=== PATIENT | female | born 1955 | race Caucasian/White ===

== ENCOUNTER 2022-05-01 14:56 | Outpatient (REF) | payer MEDICAID, SELFPAY ==
--- NOTE | ~2022-05-01 | MM_ITS ---
EXAMINATION: MM SCREENING DIGITAL BREAST TOMOSYNTHESIS, BILATERAL CLINICAL INFORMATION: Screening. Asymptomatic. The lifetime risk of breast cancer based on the Tyrer-Cuzick Model is 4%. COMPARISON: Mammography: 07/08/2017, 11/22/2015, 10/27/2012 TECHNIQUE: Digital breast tomosynthesis is performed in both the craniocaudal and mediolateral oblique views along with computer-aided detection (CAD). Synthesized 2D images are generated from the tomosynthesis. Additional left MLO view is provided. FINDINGS: There are scattered areas of fibroglandular density (ACR BI-RADS breast composition Category b). There is an irregular focal asymmetric density posterior central left breast just under 1 cm representing change from prior exams. Patient will be recalled for additional imaging. The remainder of the breasts show no significant mass or architectural abnormality or abnormal calcifications. There is intramammary node again seen posterior upper outer left breast. The axilla and skin contours are unremarkable. MM/MM tomosynthesis screening BI IMPRESSION: Left: -New irregular focal asymmetric density posterior central breast, just under 1 cm. Right: -No mammographic evidence of malignancy. ASSESSMENT: BI-RADS 0: Incomplete - Need Additional Imaging Evaluation RECOMMENDATION: 1. Additional views of the left breast (spot CC, spot MLO). 2. Left breast ultrasound. 3. Radiology department staff will contact the patient for additional imaging. This patient's information was entered into a reminder system with a target due date for their next mammogram.
== END 2022-05-01 14:57 | disposition home or self-care (01) ==
LOC: HO.MAMMO 14:56
PROVIDERS: Visit Provider Internal Medicine
DX: Z12.31 Encounter for screening mammogram for malignant neoplasm of breast (principal)
CPT/HCPCS: 77063; 77067

== ENCOUNTER 2022-05-15 13:39 | Outpatient (REF) | payer OTHER, MEDICAID, SELFPAY ==
--- NOTE | ~2022-05-15 | MM_ITS ---
EXAMINATION: MM DIAGNOSTIC DIGITAL BREAST TOMOSYNTHESIS, LEFT US BREAST TARGETED, LEFT CLINICAL INFORMATION: Asymmetric density deep central left breast. COMPARISON: Mammography: 05/01/2022 and studies dating back to 10/23/2011. TECHNIQUE: Digital breast tomosynthesis is performed. 2D images are generated from the tomosynthesis. The following views are obtained: Rolled craniocaudal views as well as spot compression craniocaudal and mediolateral oblique views of the left breast. FINDINGS: The breasts are heterogeneously dense, which may obscure small masses (ACR BI-RADS breast composition Category c). Additional imaging demonstrates persistence of an approximately 1 cm spiculated density about the deep central aspect of the left breast. Targeted left breast ultrasound did not demonstrate any abnormal cystic or solid masses. No region of abnormal distal sound shadowing was appreciated. Results are discussed with the patient at time of visit. Breast center patient coordinator notified Hawa at referring provider's office. MM/MM tomosynthesis added views L IMPRESSION: Irregular spiculated lesion left breast which is not identified on ultrasound and for which stereotactic core biopsy is recommended. ASSESSMENT: BI-RADS 4: Suspicious RECOMMENDATION: Stereotactic core biopsy left breast.
== END 2022-05-15 13:40 | disposition home or self-care (01) ==
LOC: HO.MAMMO 13:39
PROVIDERS: PCP Internal Medicine; Visit Provider Internal Medicine
DX: R92.2 Inconclusive mammogram (principal)
CPT/HCPCS: 76642; 77061; 77065

== ENCOUNTER → 2022-05-16 08:24 | Outpatient (BNVA) | payer OTHER, SELFPAY | PROVIDERS: PCP Internal Medicine; Referring Provider Internal Medicine; Visit Provider Surgery | DX: N63.22 Unspecified lump in the left breast, upper inner quadrant (principal) | CPT/HCPCS: 99202 ==

== ENCOUNTER 2022-05-17 10:09 | Outpatient (REF) | payer OTHER, SELFPAY ==
--- NOTE | ~2022-05-17 | MM_ITS ---
EXAMINATION: STEREOTACTIC TOMOSYNTHESIS-GUIDED VACUUM-ASSISTED BREAST BIOPSY, LEFT BREAST SPECIMEN RADIOGRAPH, LEFT POST PROCEDURE DIGITAL MAMMOGRAM, LEFT CLINICAL INFORMATION: Suspicious density deep central aspect of the left breast with no ultrasound correlate identified.. COMPARISON: May 15, 2022 and studies dating back to November 22, 2015. TECHNIQUE/PROCEDURE: Informed consent was obtained from the patient after discussion of the benefits, risks, and alternatives to biopsy today. Patient appeared to understand. Gave opportunity for questions. Patient signed consent form. BIOPSY TABLE: [employer] Prone Biopsy System. LESION: Ill-defined density with spiculated margins. LOCAL ANESTHESIA: 20 mL 1% lidocaine; 20 mL 1% lidocaine with epinephrine. DERMATOTOMY: Single skin vern dermatotomy performed. NEEDLE: Vapothermiva 9-gauge vacuum assisted core biopsy device. APPROACH: craniocaudal. TARGETING: Digital breast tomosynthesis used for targeting. CORES: 13. CLIP: [employer] SecurMark Cylinder-shaped marker. SPECIMEN RADIOGRAPH: Specimen radiograph is taken in separate room using digital mammography. No definite spiculated material identified. POST PROCEDURE UNILATERAL DIGITAL MAMMOGRAM: The post biopsy mammogram is performed in separate room using separate digital mammography equipment from the biopsy procedure. Craniocaudal and mediolateral views are obtained. The breasts are heterogeneously dense, which may obscure small masses (breast composition category: c). The clip marker is in position. No immediate complications. Home instructions reviewed with the patient. Final pathology results are pending. MM/MM stereotactic biopsy LT IMPRESSION: 1. Digital tomosynthesis-guided core biopsy left breast with clip placement. 2. Specimen radiograph taken and post procedure mammogram. There is satisfactory positioning of the biopsy clip. 3. Final pathology results pending. An addendum report will be issued.
[2022-05-17] MEDS: Lidocaine HCl 1 % 20 ML VIAL SUBCUT (11:25)
[2022-05-17] MEDS: Sodium Bicarbonate 8.4% 50 MEQ/50 ML VIAL SUBCUT (11:26)
[2022-05-17] MEDS: Lidocaine HCl 2% PF/Epi 1:200 20 ML VIAL INFILTRATI (11:29)
== END 2022-05-17 10:10 | disposition home or self-care (01) ==
LOC: HO.MAMMO 10:09
PROVIDERS: PCP Internal Medicine; Visit Provider Surgery
DX: R92.1 Mammographic calcification found on diagnostic imaging of breast (principal)
CPT/HCPCS: 19081; 88305; 88341; 88342; 88360; A4648

== ENCOUNTER → 2022-05-23 11:46 | Outpatient (BNVA) | payer OTHER, SELFPAY | PROVIDERS: PCP Internal Medicine; Visit Provider Surgery | DX: C50.912 Malignant neoplasm of unspecified site of left female breast (principal) | CPT/HCPCS: 99212 ==

== ENCOUNTER 2022-06-04 08:36 | Day surgery (SDC) | payer OTHER, SELFPAY ==
[2022-05-24 11:21] VITALS: BMI 21.2
--- NOTE | 2022-05-30 15:18 | P.CONAN_ITS ---
Documented by User: Elizabeth Meredith NP 05/30/22 15:19 HPI - Anesthesia Eval Consult details Narrative: 67yo F for Left ?Breast Lumpectomy/Needle Loc, [place] Node Biopsy PMFSH Active Problems Active Problems: All Active Problems (Updated 05/29/22 @ 10:53 by Raine Meyer RN) Invasive ductal carcinoma of breast (Acute) Coarse tremors (Acute) Diabetes mellitus (Acute) Smoker (Acute) Left breast mass (Acute) Breast calcification, left (Acute) Past Medical History Medical History Arthritis Breast calcification, left Chronic back pain Coarse tremors Depression Diabetes mellitus HTN (hypertension) Invasive ductal carcinoma of breast Left breast mass Lumbar disc disease Migraine Smoker Family History Family History Brother Prostate CA Surgical History Surgical History (Updated 05/31/22 @ 09:28 by Christen Quintanilla MD) History of pubovaginal sling History of tubal ligation Hx of cholecystectomy Hx of colonoscopy Social History Social History Household Members: None Housing: Apartment Are you a primary group care worker to a significant other at home: No Do you presently have visiting nurse or other home services: Yes ([place] [phone]) Alcohol intake: never Patient Tobacco Use Status: Current everyday Tobacco user Tobacco use type: Cigarette Cigarette Packs Per Day: 1 Years Smoked: ~ 40 Smoked in Last 30 Days: Yes Patient Interested in Nicotine Replacement: No Patient Given Instructions on How to Stop Smoking: Yes (mailed) Date Education Initiated: 05/24/22 Use of substances other than those prescribed or required for medical reasons: No Have you been hit, kicked, punched, or otherwise hurt by someone within the past year? If so, by whom?: No Are you DNR?: No Advance Directives: No Advance Directives Information Provided: Yes Advance Directives on File: No Recently lost weight without trying: No Eating poorly because of decreased appetite: No Nutrition Risks: No Nutritional Risk Patient : No service: No Current occupational status: disabled Meds Allergies Allergy/AdvReac Type Severity Reaction Status Date / Time No Known Allergies Allergy Mild NONE Unverified 05/24/22 10:53 Home Medications Medication Instructions Recorded Confirmed Last Taken Type acetaminophen 650 mg 650 mg PO DAILY 05/16/22 05/31/22 Unknown History tablet,extended release alcohol swabs (Alcohol Prep Pads) 0 pad topical 05/16/22 Unknown History alendronate 70 mg tablet 70 mg PO QWEEK 05/16/22 05/24/22 Unknown History atorvastatin 40 mg tablet 40 mg PO DAILY 05/16/22 05/24/22 Unknown History blood sugar diagnostic (FreeStyle #10 ea 05/16/22 Unknown History Lite Strips) blood-glucose meter (FreeStyle #1 ea 05/16/22 Unknown History [place] Lite kit) calcium carbonate 600 mg-vitamin 1 cap PO DAILY 05/16/22 05/24/22 Unknown History D3 12.5 mcg (500 unit) capsule docusate sodium 100 mg capsule 100 mg PO BID 05/16/22 05/24/22 Unknown History empagliflozin 25 mg tablet 25 mg PO DAILY 05/16/22 05/24/22 Unknown History (Jardiance) famotidine 20 mg tablet 20 mg PO BID 05/16/22 05/24/22 Unknown History lancets 28 gauge (FreeStyle #100 ea 05/16/22 Unknown History Lancets) lancets 33 gauge (TRUEplus Lancets) #100 ea 05/16/22 Unknown History lisinopril 20 mg tablet 20 mg PO DAILY 05/16/22 05/24/22 Unknown History metformin 1,000 mg tablet 1,000 mg PO BID 05/16/22 05/24/22 Unknown History mirtazapine 15 mg tablet 15 mg PO BEDTIME 05/16/22 05/24/22 Unknown History multivitamin with folic acid 400 1 tab PO DAILY 05/16/22 05/24/22 Unknown History mcg tablet (Daily-Mylene (with folic acid)) risperidone 1 mg tablet 1 mg PO BID 05/16/22 05/24/22 Unknown History sumatriptan succinate 25 mg tablet 25 mg PO DAILY PRN Headache 05/16/22 05/24/22 Unknown History trazodone 100 mg tablet 100 mg PO BEDTIME 05/16/22 05/24/22 Unknown History venlafaxine 150 mg 150 mg PO DAILY 05/29/22 05/29/22 Unknown History capsule,extended release 24 hr (Effexor XR) Exam Exam Date and Time: May 30, 2022 151 Height,Weight and Vital Signs: Height 5 ft 3 in Weight 54.431 kg Assessment and Plan Assessment Anesthesia Assessment: Chart Reviewed Documented by User: Rekha Matta MD 06/04/22 12:38 PMF Past Medical History Medical History Arthritis Breast calcification, left Chronic back pain Coarse tremors Depression Diabetes mellitus HTN (hypertension) Invasive ductal carcinoma of breast Left breast mass Lumbar disc disease Migraine Smoker Functional capacity: independent ambulation Patient : No Family History Family History Brother Prostate CA Family history of problems with anesthesia: No Surgical History Surgical History (Updated 05/31/22 @ 09:28 by Christen Quintanilla MD) History of pubovaginal sling History of tubal ligation Hx of cholecystectomy Hx of colonoscopy History of Problems with Anesthesia: No Social History Social History Household Members: None Housing: Apartment Are you a primary group care worker to a significant other at home: No Do you presently have visiting nurse or other home services: Yes ([facility] - [phone]) Alcohol intake: never Patient Tobacco Use Status: Current everyday Tobacco user Tobacco use type: Cigarette Cigarette Packs Per Day: 1 Years Smoked: ~ 40 Smoked in Last 30 Days: Yes Patient Interested in Nicotine Replacement: No Patient Given Instructions on How to Stop Smoking: Yes (mailed) Date Education Initiated: 05/24/22 Use of substances other than those prescribed or required for medical reasons: No Have you been hit, kicked, punched, or otherwise hurt by someone within the past year? If so, by whom?: No Are you DNR?: No Advance Directives: No Advance Directives Information Provided: Yes Advance Directives on File: No Recently lost weight without trying: No Eating poorly because of decreased appetite: No Nutrition Risks: No Nutritional Risk Patient : No service: No Current occupational status: disabled Meds Allergies Allergy/AdvReac Type Severity Reaction Status Date / Time No Known Allergies Allergy Mild NONE Unverified 05/24/22 10:53 Home Medications Medication Instructions Recorded Confirmed Last Taken Type acetaminophen 650 mg 650 mg PO DAILY 05/16/22 05/31/22 Unknown History tablet,extended release alcohol swabs (Alcohol Prep Pads) 0 pad topical 05/16/22 Unknown History alendronate 70 mg tablet 70 mg PO QWEEK 05/16/22 05/24/22 Unknown History atorvastatin 40 mg tablet 40 mg PO DAILY 05/16/22 05/24/22 Unknown History blood sugar diagnostic (FreeStyle #10 ea 05/16/22 Unknown History Lite Strips) blood-glucose meter (FreeStyle #1 ea 05/16/22 Unknown History [place] Lite kit) calcium carbonate 600 mg-vitamin 1 cap PO DAILY 05/16/22 05/24/22 Unknown History D3 12.5 mcg (500 unit) capsule docusate sodium 100 mg capsule 100 mg PO BID 05/16/22 05/24/22 Unknown History empagliflozin 25 mg tablet 25 mg PO DAILY 05/16/22 05/24/22 Unknown History (Jardiance) famotidine 20 mg tablet 20 mg PO BID 05/16/22 05/24/22 Unknown History lancets 28 gauge (FreeStyle #100 ea 05/16/22 Unknown History Lancets) lancets 33 gauge (TRUEplus Lancets) #100 ea 05/16/22 Unknown History lisinopril 20 mg tablet 20 mg PO DAILY 05/16/22 05/24/22 Unknown History metformin 1,000 mg tablet 1,000 mg PO BID 05/16/22 05/24/22 Unknown History mirtazapine 15 mg tablet 15 mg PO BEDTIME 05/16/22 05/24/22 Unknown History multivitamin with folic acid 400 1 tab PO DAILY 05/16/22 05/24/22 Unknown History mcg tablet (Daily-Mylene (with folic acid)) risperidone 1 mg tablet 1 mg PO BID 05/16/22 05/24/22 Unknown History sumatriptan succinate 25 mg tablet 25 mg PO DAILY PRN Headache 05/16/22 05/24/22 Unknown History trazodone 100 mg tablet 100 mg PO BEDTIME 05/16/22 05/24/22 Unknown History venlafaxine 150 mg 150 mg PO DAILY 05/29/22 05/29/22 Unknown History capsule,extended release 24 hr (Effexor XR) Exam Airway Mallampati Class: II TM Dist: >3cm Neck ROM: Full Loose/Missing/Broken Teeth: Yes, Upper and Lower Heart: RRR Lungs: CTA Assessment and Plan Final Anesthetic Review Family History of Problems with Anesthesia: No History of Problems with Anesthesia: No NPO: Yes ASA Class: II Final Preanesthetic Review: No Changes in Pt Med Stat, Meds/Allgs Chart Reviewed, Consent Obtained/Reviewed and Anes Risks/Benef Reviewed Patient Risk: Low Procedure Risk: Low Anesthetic Plan Anesthetic Plan: GA Disposition: Standard PACU
[2022-06-04] VITALS (7 sets, daily range): BP systolic 130–159; BP diastolic 63–87; PULSE 92–100; RESP 16–19; TEMP 36.3–36.6; O2SAT 94–100
--- NOTE | 2022-06-04 | ECG_ITS ---
Test Reason : Pre Op Blood Pressure : / mmHG Vent. Rate : 111 BPM Atrial Rate : 111 BPM P-R Int : 134 ms QRS Dur : 074 ms QT Int : 324 ms P-R-T Axes : 068 045 024 degrees QTc Int : 440 ms Sinus tachycardia Otherwise normal ECG When compared with ECG of 11-SEP-2013 16:17, No significant change was found Referred By: Elizabeth Meredith Electronically Signed By:ELLEN PAVON
--- NOTE | ~2022-06-04 | NM_ITS ---
EXAMINATION: LYMPHOSCINTIGRAPHY CLINICAL INFORMATION: Left breast cancer. COMPARISON: None. TECHNIQUE: A total of 0.5 mCi technetium 99m Tilmanocept (Lymphoseek) was injected in divided doses around the left areola by Dr. Scott, images of the left breast and axilla in the anterior, left anterior oblique, and left lateral projections were obtained with simultaneous visualization of the body silhouette using a cobalt flood source, with the patient positioned between the flood source and the gamma camera. FINDINGS: A sentinal node is well visualized in the left axilla. A few faint second echelon nodes are visualized in the left axilla. NM/NM sentinel node w imaging IMPRESSION: A sentinal node in the left axilla is well visualized. Following this procedure, the patient was transported to the operating room for a probe guided lymph node resection.
--- NOTE | ~2022-06-04 | MM_ITS ---
EXAMINATION: MM MAMMOGRAM GUIDED NEEDLE LOCALIZATION BREAST, LEFT MM NEEDLE LOCALIZATION SPECIMEN FROM THE LEFT BREAST CLINICAL INFORMATION: Left breast invasive carcinoma with mixed ductal and lobular features. COMPARISON: 05/17/2022, 05/15/2022, 05/01/2022 TECHNIQUE NEEDLE LOC: Proper informed consent for both the needle localization and subsequent sentinel lymph node mapping is obtained from the patient after discussion of the procedure, potential risks and complications, and alternatives including declining the procedure today. Patient was given an opportunity for questions. The patient appeared to understand. The patient consented to the procedure and signed the consent form. Hospital provided clin nurse assisted for the consent and throughout the procedure. GUIDANCE: Digital mammography. APPROACH: Lateral Medial. TARGET: Biopsy clip marker posterior central breast. ANESTHESIA: Carbonated lidocaine 1%: 6 mL. LOCALIZATION MARKER: [employer] M[employer]. 10 cm length. The skin is prepped and local anesthesia administered. The needle is positioned and position assessed with mammography. The wire is hooked into position. Panther Burn needle protector placed. The patient tolerated the procedure well and had no immediate complication. Following the procedure, 4% lidocaine ointment was administered to the left areola and covered with Tegaderm in anticipation of nuclear lymphoscintigraphy injection for sentinel lymph node mapping. Procedure results discussed with Dr. Dinero following the localization. TECHNIQUE SPECIMEN RADIOGRAPH: Imaging of the excised specimen is performed using digital mammography in 1 view. FINDINGS SPECIMEN RADIOGRAPH: The specimen shows the needle and hookwire are delivered intact. The biopsy clip marker and index calcifications are identified in the specimen. Results were called to Dr. Raffy Dinero in the operating room at the time of imaging. MM/MM needle loc LT IMPRESSION: 1. Status post left breast needle localization with wire hooked into position. 2. Post operative specimen radiograph obtained.
[2022-06-04 10:03] LABS: Glucose, Whole Blood 147 mg/dL (60-115)
[2022-06-04 10:03] LABS: Hematocrit 43.9 % (37.0-47.0); Hemoglobin 14.9 g/dl (12.0-16.0); Mean Corpuscular HGB Conc 33.9 g/dl (31.0-35.0); Mean Corpuscular Hemoglobin 31.8 pg (27.0-33.0); Mean Corpuscular Volume 93.6 fL (80.0-98.0); Mean Platelet Volume 9.4 fL (9.4-12.3); Platelet Count 416 X10*3/uL (160-400); Red Blood Count 4.69 X10*6/uL (4.20-5.50); Red Cell Distribution Width 13.1 % (11.0-16.0); White Blood Count 14.6 X10*3/uL (4.8-10.8)
--- NOTE | 2022-06-04 10:12 | PC.NURSE ---
off unit to needle loc
[2022-06-04 10:26] LABS: Anion Gap 14 (12-20); Blood Urea Nitrogen 15 mg/dL (9-16); Calcium 10.2 mg/dL (8.4-10.2); Carbon Dioxide 23 mmol/L (22-29); Chloride 105 mmol/L (96-108); Creatinine Clr Calc Pharmacy 57.7; Estimated Glomerular Filt Rate > 60; Glucose Fasting 154 mg/dL (60-99); Potassium 4.2 mmol/L (3.3-5.1); Sodium 138 mmol/L (135-145)
--- NOTE | 2022-06-04 10:53 | PC.NURSE ---
patient at [facility]
--- NOTE | 2022-06-04 11:38 | PC.NURSE ---
remains off unit
--- NOTE | 2022-06-04 12:07 | MHC.SHP ---
Pre-Procedural Eval Section A Date of Service: 06/04/22 The patient is an INPATIENT: No Changes since office visit: No Cold of Flu in the past 2 weeks, No New Medical Problems, No Changes in Medication and No Patient answered all questions The History & Physical has been completed within 30 days and I have reviewed it.: Yes Section B Chief Complaint: Malignant neoplasm of unspecified site Allergies: Allergies Allergy/AdvReac Type Severity Reaction Status Date / Time No Known Allergies Allergy Mild NONE Unverified 05/24/22 10:53 Plan I have reviewed the history and physical and performed a pertinent physical examination on my patient. No changes have occurred unless specified. Time Spent With Patient Time: Total time managing care of this patient today ____ minutes.
[2022-06-04] MEDS: Lactated Ringers 1,000 ML 100 ML IVCONT (12:39)
--- NOTE | 2022-06-04 14:25 | P.OP_ITS ---
Operative Note Operative Note Date of Service: 06/04/22 Narrative: Preop diagnosis: Left breast cancer, with invasive ductal and lobular characteristics Postop diagnosis: The same Procedure: Left breast lumpectomy with needle localization, sentinel node biopsy Surgeon: Raffy Dinero MD assignment desk assistant: BRENDAN Zamarripa The patient is a 67-year-old female, who had a recent biopsy of left breast calcifications showing invasive cancer with both ductal and lobular characte ristics. I therefore explained to her that her options I had sent her for discussions with the oncologist. She wanted to proceed with lumpectomy. Technique of lumpectomy with needle localization and sentinel biopsy. She was aware of the risks, benefits, and alternatives. She was brought to the operating room placed supine under general anesthesia via laryngeal mask airway. The left arm was abducted. The area of the left breast and axilla were prepped and draped in the usual sterile fashion. A surgical time-out was done. The patient received cefazolin 2 g IV preoperatively. She had undergone needle localization as well as nuclear scintigraphy of the left axilla earlier. I reviewed the images with the radiologist. The localizing needle was coming in from the lateral aspect medially towards the deep aspect of the left breast at the level of the nipple areolar complex. I made a short incision consulted this localizing needle using blade 15. This was carried down through the full-thickness of the skin subcutaneous fat. We then proceeded to use the curved Rutledge scissors to debride breast tissue surrounding this localizing needle. I continued to dissect this breast tissue in the needle, with care being taken so as to ensure that we had generous breast tissue for margins. I continued to palpate to make sure that we were past the level of the of the needle. I then divided the rest of the breast tissue surrounding the distal end of the localizing needle. I had marked the superior margins as well as the lateral margins with sutures. This was then sent for re- ray as well as for immediate gross exam. I then applied a packing inside the excision site while we continued with the sentinel node biopsy We changed instruments set up and changed gloves at this point. I used the gamma probe to locate for optimal counts on the axilla. Packed this area and made this incision using a blade 15. I carried down this incision with electrocautery. I then periodically used the gamma probe to direct my dissection into the axilla where highest counts on the probe where. I periodically palpated for lymph nodes. With this technique, I was able to retrieve 3 lymph nodes. [place] node 1 had a count of 102. [place] node 2 had a count of 2105. [place] node 3 had a count of 400. There were no other weighted counts in the background. There were no palpable lymph nodes either retrieval of this 3 lymph nodes I observed for hemostasis the axilla. I control a few oozing areas with ligation using 3-0 ties I irrigated and once hemostasis was confirmed, I closed the layers with Dexon 3- 0 interrupted sutures. Skin closure was achieved with Dexon 4-0 subcuticular running stitch. At this point we were called by the radiologist and the clip was noted to be within the specimen. The pathologist had called as well to state that the inferior margins may be close. Furthermore, she had recommended removing more of the superolateral margins. I therefore proceeded to remove more clear margins inferiorly as well as superior lateral margins. These additional margins were sent for pathology. I did not feel any induration or any lesion within the excision site. I irrigated and observed for hemostasis. There was note of some oozing on the deep margins which had visible muscle and fascia. I cauterized this. Once hemostasis was confirmed, I reapposed deep tissue with multiple Dexon 3-0 interrupted sutures. Skin closure was achieved with Dexon 4-0 subcuticular stitch. Pressure dressings were applied. The incisions were infiltrated with Marcaine 0.5% for postop analgesia and the procedure was completed The patient tolerated procedure well. There were no immediate complications. Initial and final counts of sponges and instruments were correct. Estimated blood loss was about 75 cc. The patient was extubated without difficulty and transferred to the recovery room with stable vital signs. Breast [place] Node Biopsy Substrate(s) used for sentinel node biopsy in the non-neoadjuvant setting: Radiotracer All colored nodes or non-colored nodes present at the end of a dye filled lymphatic channel were removed, if dye was used as the substrate for localization: N/A All significantly radioactive nodes were removed, if radionuclide was used as the substrate for localization: Yes All palpably suspicious nodes were removed, if present: Yes If clips were placed in pathology-involved nodes, those nodes were identified and removed: N/A General Surg. - Synoptic Notes Breast [place] Node Biopsy Substrate(s) used for sentinel node biopsy in the non-neoadjuvant setting: Radiotracer All colored nodes or non-colored nodes present at the end of a dye filled lymphatic channel were removed, if dye was used as the substrate for localization: N/A All significantly radioactive nodes were removed, if radionuclide was used as the substrate for localization: Yes All palpably suspicious nodes were removed, if present: Yes If clips were placed in pathology-involved nodes, those nodes were identified and removed: N/A
[2022-06-04] MEDS: fentaNYL citrate/PF 100 MCG/2 ML VIAL 25 MCG IVPUSH (15:02)
--- NOTE | 2022-06-04 15:07 | HO.POSTANES ---
Post Anesthesia Evaluation Post Anesthesia Evaluation Vital Signs: Vital Signs Temp Pulse Resp BP Pulse Ox O2 Del Method 06/04/22 15:02 19 06/04/22 14:59 95 18 158/75 H 100 Room Air 06/04/22 14:54 97 18 158/76 H 97 Room Air 06/04/22 14:49 99 17 130/73 94 Room Air 06/04/22 14:44 97.8 F 100 16 159/81 H 97 Room Air Anesthesia: General Mental Status: Awake Pain Control: Satisfactory Nausea/Vomiting: None Hydration: Adequate Anesthesia-Related Issues: No Anes. Related Issues
== END 2022-06-04 15:42 | disposition home or self-care (01) ==
PROVIDERS: Nurse Practitioner; PCP Internal Medicine; Visit Provider Surgery
PROC: (CPT 19301; principal; 2022-06-04 12:30)
PROC: (CPT 19301; 2022-06-04 12:30)
DX: C50.912 Malignant neoplasm of unspecified site of left female breast (principal); I10 Essential (primary) hypertension; E11.9 Type 2 diabetes mellitus without complications; G43.909 Migraine, unspecified, not intractable, without status migrainosus; R25.1 Tremor, unspecified; Z79.84 Long term (current) use of oral hypoglycemic drugs; Z79.899 Other long term (current) drug therapy; F17.210 Nicotine dependence, cigarettes, uncomplicated
CPT/HCPCS: 19301; 38525; 19281; 36415; 78195; 80048; 82947; 85027; 88305; 88307; 88329; 88341; 88342; 93005; A4648; A9520; J0690; J1100; J2250; J2405; J2795; J3010